=== PATIENT | female | born 1985 | race Caucasian/White ===

== ENCOUNTER 2018-10-04 08:29 | Emergency (ER) | payer SELFPAY ==
--- NOTE | 2018-10-04 09:28 | EDPHYS ---
Physician Documentation [facility] Name: Maine Bains Age: 33 yrs Sex: Female : 1985 Arrival Date: 10/04/2018 Time: 08:31 Bed 12 Private MD: None, None ED Physician Kodak Moran HPI: 10/04 09:19 This 33 yrs old Female presents to ER via Ambulatory with complaints of Ear cp Pain. 09:19 The patient presents with drainage, that is purulent, pain, that is acute, tenderness. cp The complaints affect the right ear. Onset: The symptoms/episode began/occurred 1 week(s) ago. Associated signs and symptoms: Pertinent negatives: cough, sinus trouble, sore throat. Severity of symptoms: in the emergency department the symptoms are unchanged. The patient has been recently seen by a physician: in [facility] clinic, yesterday, with similar presenting complaints, given RX for antibiotic ear drops and IM shot of toradol. 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 - Social history:: Smoking status: Patient uses tobacco products, smokes one-half pack cigarettes per day. - Ebola Screening: : No symptoms or risks identified at this time. ROS: 09:22 Eyes: Negative for injury, pain, redness, and discharge. cp 09:22 Constitutional: Negative for body aches, chills, fever, poor PO intake. 09:22 ENT: Positive for drainage from ear(s), ear pain, Negative for sore throat, difficulty swallowing, difficulty handling secretions. 09:22 Neck: Negative for pain with movement, pain at rest, stiffness. 09:22 Respiratory: Negative for cough. 09:22 All other systems are negative. Exam: 09:23 Head/Face: Normocephalic, atraumatic. cp 09:23 Constitutional: The patient appears alert, awake, non-toxic, well developed, well nourished, uncomfortable. 09:23 Eyes: Periorbital structures: appear normal, Conjunctiva: normal, no exudate, no injection, Lids and lashes: appear normal, bilaterally. 09:23 ENT: External ear(s): pain with movement, that is severe, of the right ear canal, swelling, that is moderate, of the right ear canal, Ear canal(s): purulent discharge, that is moderate, in the right canal, swelling, that is moderate, of the right canal, TM's: not visable, because of discharge, Examination of the other ear shows no obvious abnormality, Nose: is normal, Mouth: is normal, Posterior pharynx: Airway: no evidence of obstruction, patent. 09:23 Neck: ROM/movement: is normal, is supple, without pain, no range of motions limitations, no nuchal rigidity. 09:23 Chest/axilla: Inspection: normal. 09:23 Cardiovascular: Rate: normal. 09:23 Respiratory: the patient does not display signs of respiratory distress, Respirations: normal. Vital Signs: 09:02 BP 132 / 93; Pulse 83; Resp 16 S; Temp 98.0(O); Pulse Ox 99% on R/A; Weight 80.29 kg aa5 (R); Height 5 ft. 7 in. (170.18 cm) (R); Pain 10/10; 09:02 Body Mass Index 27.72 (80.29 kg, 170.18 cm) aa5 MDM: 09:01 Patient medically screened. cp 09:26 Data reviewed: vital signs, nurses notes, and as a result, I will discharge patient. cp Administered Medications: 09:45 Drug: TORadol 60 mg Route: IM; Site: right gluteus; aa5 10:00 Follow up: Response: No adverse reaction aa5 Disposition: 10:31 Co-signature as Attending Physician, Kodak Moran MD I agree with the assessment and ricardo plan of care. Disposition: 10/04/18 09:27 Discharged to Home. Impression: Acute suppurative otitis media with spontaneous rupture of ear drum, right ear. - Condition is Stable. - Discharge Instructions: Ear Drops, Adult, Otitis Media, Adult. - Prescriptions for Augmentin 875- 125 mg Oral Tablet - take 1 tablet by ORAL route every 12 hours for 10 days; 20 tablet. Ibuprofen 800 mg Oral Tablet - take 1 tablet by ORAL route every 8 hours As needed take with food; 30 tablet. Tylenol- Codeine #3 300-30 mg Oral Tablet - take 2 tablets by ORAL route every 8 hours As needed no driving while taking medication; 12 tablet. - Medication Reconciliation Form, Thank You Letter, Antibiotic Education, Prescription Opioid Use form. - Follow up: Private Physician; When: 2 - 3 days; Reason: Recheck today's complaints. - Problem is new. - Symptoms have improved. Signatures: Kodak Moran MD MD cha Calderon, Audri RN RN aa5 Kodak Levin PA PA cp Corrections: (The following items were deleted from the chart) 10:10 09:27 10/04/2018 09:27 Discharged to Home. Impression: Acute suppurative otitis media aa5 with spontaneous rupture of ear drum, right ear. Condition is Stable. Forms are Medication Reconciliation Form, Thank You Letter, Antibiotic Education, Prescription Opioid Use. Follow up: Private Physician; When: 2 - 3 days; Reason: Recheck today's complaints. Problem is new. Symptoms have improved. cp
--- NOTE | 2018-10-04 09:28 | ER ---
Nurse's Notes [facility] Name: Maine Bains Age: 33 yrs Sex: Female : 1985 Arrival Date: 10/04/2018 Time: 08:31 Bed 12 Private MD: None, None Diagnosis: Acute suppurative otitis media with spontaneous rupture of ear drum, right ear Presentation: 10/04 09:00 Presenting complaint: Patient states: right ear pain x 1 week ago. Pt reports [facility] aa5 [facility] and prescribed Ofloxacin, pt also reports receiving Toradol yesterday and helped with the pain but the pain got worse this morning. Pt states "the pain is so bad today". Transition of care: patient was not received from another setting of care. Onset of symptoms was September 2018. Risk Assessment: Do you want to hurt yourself or someone else? Patient reports no desire to harm self or others. Initial Sepsis Screen: Does the patient meet any 2 criteria? No. Patient's initial sepsis screen is negative. Does the patient have a suspected source of infection? No. Patient's initial sepsis screen is negative. Care prior to arrival: None. 09:00 Method Of Arrival: Ambulatory aa5 09:00 Acuity: DEANNE 4 aa5 Triage Assessment: 09:00 General: Appears uncomfortable, Behavior is calm, cooperative. 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 - Social history:: Smoking status: Patient uses tobacco products, smokes one-half pack cigarettes per day. - Ebola Screening: : No symptoms or risks identified at this time. Screenin:02 Abuse screen: Denies threats or abuse. Nutritional screening: No deficits noted. aa5 Tuberculosis screening: No symptoms or risk factors identified. Fall Risk None identified. Assessment: 09:00 General: Appears uncomfortable, Behavior is calm, cooperative. Pain: Complains of pain aa5 in right ear Pain currently is 10 out of 10 on a pain scale. Quality of pain is described as sharp, tender, throbbing, Pain began 1 week ago Is continuous. Neuro: Level of Consciousness is awake, alert, obeys commands, Oriented to person, place, time, situation. Cardiovascular: No deficits noted. Respiratory: Airway is patent Respiratory effort is even, unlabored, Respiratory pattern is regular, symmetrical. GI: No signs and/or symptoms were reported involving the gastrointestinal system. : No signs and/or symptoms were reported regarding the genitourinary system. EENT: Swelling noted to right ear . Reports pain in right ear. Derm: Skin is pink, warm \\T\\ dry. Musculoskeletal: Range of motion: intact in all extremities. 09:40 Reassessment: To bedside to d/c pt, pt requesting pain medication, PA notified. Ear aa5 wick applied to right ear by PA. . 10:00 Reassessment: Patient is alert, oriented x 3, equal unlabored respirations, skin aa5 warm/dry/pink. Patient states feeling better. Pain: Pain currently is 8 out of 10 on a pain scale. Vital Signs: 09:02 BP 132 / 93; Pulse 83; Resp 16 S; Temp 98.0(O); Pulse Ox 99% on R/A; Weight 80.29 kg aa5 (R); Height 5 ft. 7 in. (170.18 cm) (R); Pain 10/10; 09:02 Body Mass Index 27.72 (80.29 kg, 170.18 cm) aa5 ED Course: 08:31 Patient arrived in ED. mr 08:32 None, None is Private Physician. mr 09:00 Diana Starr, RN is Primary Nurse. aa5 09:00 Arm band placed on Patient placed in an exam room. aa5 09:00 Patient has correct armband on for positive identification. Call light in reach. aa5 09:01 Kodak Levin PA is PHCP. cp 09:01 Kodak Moran MD is Attending Physician. cp 09:01 Triage completed. aa5 10:00 No provider procedures requiring assistance completed. Patient did not have IV access aa5 during this emergency room visit. Administered Medications: 09:45 Drug: TORadol 60 mg Route: IM; Site: right gluteus; aa5 10:00 Follow up: Response: No adverse reaction aa5 Outcome: : Discharge ordered by . cp 10:00 Discharged to home ambulatory. aa5 10:00 Condition: stable 10:00 Discharge instructions given to patient, Instructed on discharge instructions, follow up and referral plans. medication usage, Demonstrated understanding of instructions, follow-up care, medications, Prescriptions given X 3. 10:02 Patient left the ED. aa5 Signatures: Terseita Mullen mr StarrDiana, RN RN aa5 Kodak Levin PA PA cp Corrections: (The following items were deleted from the chart) 10:11 10:10 Patient left the ED. aa5 aa5
[2018-10-04] MEDS ORDERED: KETOROLAC 30 MG/ML INJ ONE (09:53)
== END 2018-10-04 10:10 | disposition home or self-care (01) ==
LOC: ER 08:29
DX: H66.001 Acute suppurative otitis media without spontaneous rupture of ear drum, right ear (principal); F17.210 Nicotine dependence, cigarettes, uncomplicated
CPT/HCPCS: 96372; 99283

== ENCOUNTER 2022-05-04 18:25 | Emergency (ER) | payer SELFPAY ==
--- OUTSIDE RECORDS SUMMARY | 2022-05-04 18:29 | XMS REPORT | Continuity of Care Document ---
:[address] [facility] t Address [address] [place] [address] Care Team Providers Name Role Phone Vangie Blanco Primary Care Physician [phone] Problems This patient has no known problems. Allergies, Adverse Reactions, Alerts This patient has no known allergies or adverse reactions. Medications Ordered Filled Start Stop Current Ordering Indication Dosage Frequency Signature Comments Components Source Medication Medication Date Date Medication? Clinician (SIG) Name Name Dose 2021-0 No Unknown 4-01 00:00: 00 Dose 2022-0 No Unknown 4-01 00:00: 00 Dose 2022-0 No Unknown 4-01 00:00: 00 Dose 2022-0 No Unknown 4-01 00:00: 00 Dose 2022-0 No Unknown 4-01 00:00: 00 Dose 2022-0 No Unknown 4-01 00:00: 00 Dose 2022-0 No Unknown 4-01 00:00: 00 Dose 2022-0 No Unknown 4-01 00:00: 00 Dose 2022-0 No Unknown 4-01 00:00: 00 Dose 2022-0 No Unknown 4-01 00:00: 00 Dose 2022-0 No Unknown 4-01 00:00: 00 Dose 2022-0 No Unknown 4-01 00:00: 00 Dose 2022-0 No Unknown 4-01 00:00: 00 Dose 2022-0 No Unknown 4-01 00:00: 00 Dose 2022-0 No Unknown 4-01 00:00: 00 Dose 2022-0 No Unknown 4-01 00:00: 00 Dose 2022-0 No Unknown 4-01 00:00: 00 Dose 2022-0 No Unknown 4-01 00:00: 00 Dose 2022-0 No Unknown 4-01 00:00: 00 Dose 2022-0 No Unknown 4-01 00:00: 00 Dose 2022-0 No Unknown 4-01 00:00: 00 Dose 2022-0 No Unknown 4-01 00:00: 00 Dose 2022-0 No Unknown 4-01 00:00: 00 Dose 2022-0 No Unknown 4-01 00:00: 00 Dose 2022-0 No Unknown 4-01 00:00: 00 Dose 2022-0 No Unknown 4-01 00:00: 00 Dose 2022-0 No Unknown 4-01 00:00: 00 Dose 2022-0 No Unknown 4-01 00:00: 00 Dose 2022-0 No Unknown 4-01 00:00: 00 Dose 2022-0 No Unknown 4-01 00:00: 00 Dose 2022-0 No Unknown 4-01 00:00: 00 Dose 2022-0 No Unknown 4-01 00:00: 00 Dose 2022-0 No Unknown 4-01 00:00: 00 Dose 2022-0 No Unknown 4-01 00:00: 00 Dose 2022-0 No Unknown 4-01 00:00: 00 Dose 2022-0 No Unknown 4-01 00:00: 00 Dose 2022-0 No Unknown 4-01 00:00: 00 Dose 2022-0 No Unknown 4-01 00:00: 00 Dose 2022-0 No Unknown 4-01 00:00: 00 Dose 2022-0 No Unknown 4-01 00:00: 00 Dose 2022-0 No Unknown 4-01 00:00: 00 Dose 2022-0 No Unknown 4-01 00:00: 00 Dose 2022-0 No Unknown 4-01 00:00: 00 Dose 2022-0 No Unknown 4-01 00:00: 00 Dose 2022-0 No Unknown 4-01 00:00: 00 Dose 2022-0 No Unknown 4-01 00:00: 00 Dose 2022-0 No Unknown 4-01 00:00: 00 Dose 2022-0 No Unknown 4-01 00:00: 00 Dose 2022-0 No Unknown 4- 00:00: 00 Dose 2022-0 No Unknown 4- 00:00: 00 Dose 2022-0 No Unknown 4-01 00:00: 00 Dose 2022-0 No Unknown 4-01 00:00: 00 Dose 2022-0 No Unknown 4-01 00:00: 00 Dose 2-0 No Unknown 4-01 00:00: 00 Dose 2-0 No Unknown 3-16 00:00: 00 Dose 2022-0 No Unknown 3-16 00:00: 00 Dose 2022-0 No Unknown 3-16 00:00: 00 Dose 2022-0 No Unknown 3-16 00:00: 00 Dose 2-0 No Unknown 3-16 00:00: 00 Dose 2022-0 No Unknown 3-16 00:00: 00 Dose 2022-0 No Unknown 3-16 00:00: 00 Dose 2-0 No Unknown 3-16 00:00: 00 Dose 2-0 No Unknown 3-16 00:00: 00 Depo-M[address] Supervisor 2021-0 No 1mg/mL a 150 mg/mL 4-16 intramuscul 00:00: ar 00 suspension mupirocin 2 2020-0 No 1% % topical 5-15 ointment 00:00: 00 mupirocin 2 2020-0 No 1% % topical 5-15 ointment 00:00: 00 mupirocin 2 2020-0 No 1% % topical 5-15 ointment 00:00: 00 ibuprofen 2019-0 No 1mg 800 mg 3-15 tablet 00:00: 00 ibuprofen 2019-0 No 1mg 800 mg 3-15 tablet 00:00: 00 ibuprofen 2019-0 No 1mg 800 mg 3-15 tablet 00:00: 00 Dose 2019-0 No Unknown 3-14 00:00: 00 Dose 2019-0 No Unknown 3-14 00:00: 00 ofloxacin 2019-0 No 10% 0.3 % ear 3-14 drops 00:00: 00 amoxicillin 2018-0 No 1mg 875 mg 4-30 tablet 00:00: 00 amoxicillin 2018-0 No 1mg 875 mg 4-30 tablet 00:00: 00 amoxicillin 2018-0 No 1mg 875 mg 4-30 tablet 00:00: 00 Vital Signs Vital Name Observation Time Observation Value Comments Source BP Systolic 2022-02-02 17:16:00 124 mm[Hg] BP Diastolic 2022-02-02 17:16:00 87 mm[Hg] Weight Measured 2022-02-02 17:16:00 193.80 pounds Height Measured 2022-02-02 17:16:00 67.00 inches Body Temperature 2022-02-02 17:16:00 98.10 degrees Heart Rate 2022-02-02 17:16:00 86.00 /min Respiratory Rate 2022-02-02 17:16:00 18.00 /min BP Systolic 2021-07-22 08:49:00 120 mm[Hg] BP Diastolic 2021-07-22 08:49:00 76 mm[Hg] Weight Measured 2021-07-22 08:49:00 192.20 pounds Height Measured 2021-07-22 08:49:00 67.00 inches Body Temperature 2021-07-22 08:49:00 98.40 degrees Heart Rate 2021-07-22 08:49:00 88.00 /min Respiratory Rate 2021-07-22 08:49:00 18.00 /min BP Systolic 2021-04-22 09:02:00 117 mm[Hg] BP Diastolic 2021-04-22 09:02:00 72 mm[Hg] Weight Measured 2021-04-22 09:02:00 186.20 pounds Height Measured 2021-04-22 09:02:00 67.00 inches Body Temperature 2021-04-22 09:02:00 98.20 degrees Heart Rate 2021-04-22 09:02:00 82.00 /min Respiratory Rate 2021-04-22 09:02:00 21.00 /min BP Systolic 2020-08-12 13:39:00 120 mm[Hg] BP Diastolic 2020-08-12 13:39:00 76 mm[Hg] Weight Measured 2020-08-12 13:39:00 191.80 pounds Height Measured 2020-08-12 13:39:00 67.00 inches Body Temperature 2020-08-12 13:39:00 98.20 degrees Heart Rate 2020-08-12 13:39:00 72.00 /min Respiratory Rate 2020-08-12 13:39:00 18.00 /min BP Systolic 2019-12-05 09:54:00 124 mm[Hg] BP Diastolic 2019-12-05 09:54:00 76 mm[Hg] Weight Measured 2019-12-05 09:54:00 186.80 pounds Height Measured 2019-12-05 09:54:00 67.00 inches Body Temperature 2019-12-05 09:54:00 98.70 degrees Heart Rate 2019-12-05 09:54:00 69.00 /min Respiratory Rate 2019-12-05 09:54:00 16.00 /min BP Systolic 2018-10-03 10:55:00 121 mm[Hg] BP Diastolic 2018-10-03 10:55:00 79 mm[Hg] Weight Measured 2018-10-03 10:55:00 177.20 pounds Height Measured 2018-10-03 10:55:00 67.00 inches Body Temperature 2018-10-03 10:55:00 98.50 degrees Heart Rate 2018-10-03 10:55:00 90.00 /min Respiratory Rate 2018-10-03 10:55:00 16.00 /min BP Systolic 2017-11-19 08:50:00 119 mm[Hg] BP Diastolic 2017-11-19 08:50:00 87 mm[Hg] Weight Measured 2017-11-19 08:50:00 159.00 pounds Height Measured 2017-11-19 08:50:00 67.00 inches Body Temperature 2017-11-19 08:50:00 97.30 degrees Heart Rate 2017-11-19 08:50:00 73.00 /min Respiratory Rate 2017-11-19 08:50:00 18.00 /min BP Systolic 2017-07-27 11:46:00 129 mm[Hg] BP Diastolic 2017-07-27 11:46:00 86 mm[Hg] Weight Measured 2017-07-27 11:46:00 154.20 pounds Height Measured 2017-07-27 11:46:00 67.00 inches Body Temperature 2017-07-27 11:46:00 98.00 degrees Heart Rate 2017-07-27 11:46:00 68.00 /min Respiratory Rate 2017-07-27 11:46:00 18.00 /min BP Systolic 2017-05-10 11:11:00 129 mm[Hg] BP Diastolic 2017-05-10 11:11:00 86 mm[Hg] Weight Measured 2017-05-10 11:11:00 156.60 pounds Height Measured 2017-05-10 11:11:00 67.00 inches Body Temperature 2017-05-10 11:11:00 98.50 degrees Heart Rate 2017-05-10 11:11:00 71.00 /min Respiratory Rate 2017-05-10 11:11:00 BP Systolic 2017-02-20 08:45:00 120 mm[Hg] BP Diastolic 2017-02-20 08:45:00 82 mm[Hg] Weight Measured 2017-02-20 08:45:00 156.40 pounds Height Measured 2017-02-20 08:45:00 67.00 inches Body Temperature 2017-02-20 08:45:00 97.90 degrees Heart Rate 2017-02-20 08:45:00 79.00 /min Respiratory Rate 2017-02-20 08:45:00 Procedures This patient has no known procedures. Plan of Care Planned Activity Planned Date Details Comments Source Goal Plan of Care Note [code = 59835-8] Goal Plan of Care Note [code = 05748-6] Goal Plan of Care Note [code = 77169-2] Goal Plan of Care Note [code = 32563-1] Goal Plan of Care Note [code = 42577-9] Goal Plan of Care Note [code = 79229-8] Goal Plan of Care Note [code = 13608-5] Goal Plan of Care Note [code = 58662-5] Goal Plan of Care Note [code = 20409-5] Goal Plan of Care Note [code = 70540-7] Goal Plan of Care Note [code = 30970-4] Goal Plan of Care Note [code = 53302-6] Goal Plan of Care Note [code = 89126-3] Goal Plan of Care Note [code = 04588-8] Goal Plan of Care Note [code = 44173-9] Goal Plan of Care Note [code = 42188-0] Goal Plan of Care Note [code = 41717-4] Goal Plan of Care Note [code = 85607-1] Goal Plan of Care Note [code = 43105-5] Goal Plan of Care Note [code = 97960-6] Goal Plan of Care Note [code = 63469-4] Goal Plan of Care Note [code = 43958-5] Goal Plan of Care Note [code = 08905-9] Goal Plan of Care Note [code = 02242-0] Goal Plan of Care Note [code = 49267-5] Goal Plan of Care Note [code = 51581-5] Goal Plan of Care Note [code = 36904-2] Goal Plan of Care Note [code = 46529-5] Goal Plan of Care Note [code = 36222-6] Goal Plan of Care Note [code = 30519-9] Encounters Start End Encounter Admission Attending Care Care Encounter Source Date/Time Date/Time Type Type Clinicians Facility Department ID 2022-05-02 2022-05-02 Outpatient [id number] 00:00:00 00:00:00 Visit [id number] 2022-04-28 2022-04-28 Outpatient SFA SFA [id number] Norm 10:23:54 10:23:54 007 F Bassam 2022-04-19 2022-04-19 Outpatient [id number] 00:00:00 00:00:00 Visit [id number] 2022-02-02 2022-02-02 Outpatient [id number] 00:00:00 00:00:00 Visit [id number] Results This patient has no known results.
[2022-05-04] MEDS ORDERED: ONDANSETRON 4 MG/2 ML VIAL ONE (19:33)
[2022-05-04] MEDS ORDERED: MORPHINE 4 MG/ML SYR ONE (19:33)
[2022-05-04 20:11] LABS: Absolute Lymphocytes (CBC) 2.7 K/uL (0.7-4.9); Hematocrit 37.3 % (36.0-45.0); Lymphocytes % 35.7 % (15.3-44.8); MCV 92.1 fL (80-100); RBC Red Blood Cell Count 4.05 M/uL (3.86-4.86)
[2022-05-04 20:28] LABS: Albumin 3.5 g/dL (3.4-5.0); Bilirubin Total 0.2 mg/dL (0.2-1.0); Potassium 3.8 mmol/L (3.5-5.1); Protein, Total 6.9 g/dL (6.4-8.2)
[2022-05-04] MEDS ORDERED: BUPIVACAINE 0.5% PF 10 ML VIAL ONE (20:59)
[2022-05-04] MEDS ORDERED: LIDOCAINE 1% MPF 5 ML VIAL ONE (20:59)
[2022-05-04] MEDS ORDERED: CLINDAMYCIN 900MG/D5W 900 MG/50 ML IVPB IV ONE (21:00)
--- NOTE | 2022-05-04 21:12 | RAD REPORT ---
EXAM DESCRIPTION: RAD - Foot Right 3 View - 05/04/2022 9:04 pm CLINICAL HISTORY: toe pain Pain and swelling COMPARISON: No comparisons FINDINGS: Moderate soft tissue swelling is seen affecting the great toe. No soft tissue gas or forei gn body. No radiographic finding seen to indicate osteomyelitis. No fracture.
--- NOTE | 2022-05-04 21:55 | ER ---
Nurse's Notes [facility] Name: Maine Bains Age: 37 yrs Sex: Female : 1985 Arrival Date: 05/04/2022 Time: 18:27 Bed 5 Private MD: Diagnosis: Cellulitis of right lower limb-right great toe;Ingrowing nail-right great toe Presentation: 05/04 18:53 Chief complaint: Patient states: right great toe red, swollen, infected ; soaking in jh5 epsom salt and doing Neosporin andd getting worse. Coronavirus screen: Vaccine status: Patient reports receiving the 2nd dose of the covid vaccine. Client denies travel out of the [place] in the last 14 days. Ebola Screen: Patient negative for fever greater than or equal to 101.5 degrees Fahrenheit, and additional compatible Ebola Virus Disease symptoms Patient denies exposure to infectious person. Patient denies travel to an Ebola-affected area in the 21 days before illness onset. Initial Sepsis Screen: Does the patient meet any 2 criteria? HR > 90 bpm. Yes Does the patient have a suspected source of infection? Yes: Other: right great toe. Risk Assessment: Do you want to hurt yourself or someone else? Patient reports no desire to harm self or others. Onset of symptoms was March 2022. 18:53 Method Of Arrival: Ambulatory [facility] 18:53 Acuity: DEANNE 3 5 Triage Assessment: 18:59 General: Appears uncomfortable, Behavior is calm, cooperative, appropriate for age, [facility] anxious, crying. Pain: Complains of pain in right foot. 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 - Social history:: Smoking status: Patient denies any tobacco usage or history of. Screenin:20 Abuse screen: Denies threats or abuse. Denies injuries from another. Nutritional lg3 screening: No deficits noted. Tuberculosis screening: No symptoms or risk factors identified. Fall Risk None identified. Assessment: 19:20 General: Appears in no apparent distress. comfortable, Behavior is calm, cooperative. lg3 Pain: Complains of pain in right great toe Pain currently is 6 out of 10 on a pain scale. Neuro: No deficits noted. Level of Consciousness is awake, alert, obeys commands, Oriented to person, place, time, situation. Cardiovascular: No deficits noted. Denies chest pain, shortness of breath, Capillary refill < 3 seconds Clubbing of nail beds is absent JVD is absent Patient's skin is warm and dry. Respiratory: No deficits noted. Airway is patent Trachea midline Respiratory effort is even, unlabored, Respiratory pattern is regular, symmetrical, Breath sounds are clear bilaterally. GI: No deficits noted. No signs and/or symptoms were reported involving the gastrointestinal system. Abdomen is flat, non-distended, Abd is soft and non tender X 4 quads. : No deficits noted. No signs and/or symptoms were reported regarding the genitourinary system. EENT: No deficits noted. No signs and/or symptoms were reported regarding the EENT system. Derm: Skin is intact, is healthy with good turgor, Skin is dry, Skin is normal, Skin temperature is warm Wound noted right great toe Reports pain. Musculoskeletal: Circulation, motion, and sensation intact. Range of motion: intact in all extremities, Swelling present in right great toe. 21:17 Reassessment: Patient appears in no apparent distress at this time. No changes from lg3 previously documented assessment. Patient and/or family updated on plan of care and expected duration. Pain level reassessed. Patient is alert, oriented x 3, equal unlabored respirations, skin warm/dry/pink. 22:17 Reassessment: Patient appears in no apparent distress at this time. No changes from lg3 previously documented assessment. Patient and/or family updated on plan of care and expected duration. Pain level reassessed. Patient is alert, oriented x 3, equal unlabored respirations, skin warm/dry/pink. Pain: Complains of pain in right great toe Pain currently is 4 out of 10 on a pain scale. Vital Signs: 18:53 BP 155 / 95; Pulse 90; Resp 16; Temp 98.8; Pulse Ox 100% ; Weight 86.18 kg; Height 5 jh5 ft. 7 in. (170.18 cm); Pain 10/10; 21:18 BP 135 / 78; Pulse 84; Resp 17 S; Pulse Ox 100% on R/A; lg3 18:53 Body Mass Index 29.76 (86.18 kg, 170.18 cm) [facility] ED Course: 18:27 Patient arrived in ED. rg4 18:31 [facility] cp 18:31 Kodak Moran MD is Attending Physician. cp 18:59 Triage completed. [facility] 18:59 Arm band placed on. [facility] 19:02 Patient placed in an exam room, on a stretcher. ll1 19:13 Destiney Leavitt, RN is Primary Nurse. lg3 19:20 Patient has correct armband on for positive identification. Placed in gown. Bed in low lg3 position. Call light in reach. Side rails up X 1. Client placed on continuous cardiac and pulse oximetry monitoring. NIBP monitoring applied. Door closed. Noise minimized. Warm blanket given. Family accompanied patient. 21:00 Inserted saline lock: 20 gauge in right antecubital area, using aseptic technique. lg3 Blood collected. 21:54 Miguel Coulter DPM is Referral Physician. cp 22:18 No provider procedures requiring assistance completed. IV discontinued, intact, lg3 bleeding controlled, No redness/swelling at site. Pressure dressing applied. Administered Medications: 21:04 Drug: morphine 4 mg Route: IVP; Infused Over: 4 mins; Site: right antecubital; as6 21:13 Follow up: Response: No adverse reaction; No change in condition lg3 21:04 Drug: Zofran (Ondansetron) 4 mg Route: IVP; Site: right antecubital; as6 21:13 Follow up: Response: No adverse reaction lg3 21:04 Drug: Clindamycin 900 mg Route: IVPB; Infused Over: 30 mins; Site: right antecubital; as6 21:17 Follow up: Response: No adverse reaction; IV Status: Completed infusion; IV Intake: [id number] 21:16 Drug: Bupivacaine (0.5 %) 10 ml Volume: 10 ml; Route: Infiltration; lg3 21:16 Drug: Lidocaine (1 %) 10 ml Volume: 20 ml; Route: Infiltration; lg3 22:15 Drug: Hydrocodone-Acetaminophen (7.5 mg-325 mg) 1 tabs Route: PO; lg3 22:15 Follow up: Response: No adverse reaction lg3 22:15 Drug: Bactrim (trimethoprim-sulfamethoxazole) (160 mg-800 mg (DS) 2 tablet Route: PO; lg3 22:15 Follow up: Response: No adverse reaction lg3 Medication: 22:19 VIS not applicable for this client. lg3 Intake: 21:17 IV: 50ml; Total: 50ml. lg3 Outcome: 21:54 Discharge ordered by . cp 22:19 Discharged to home ambulatory. lg3 22:19 Condition: stable 22:19 Discharge instructions given to patient, Instructed on discharge instructions, follow up and referral plans. medication usage, wound care, Demonstrated understanding of instructions, follow-up care, medications, wound care, Prescriptions given X 3. 22:24 Patient left the ED. kd3 Signatures: Kodak Levin PA PA cp Garcia, Rubi rg4 Destiney Leavitt, RN RN lg3 Arian Lee, RN RN ll1 Parisa Perez, RN RN jh5 Nicholas Goodman, RN RN as6 Patricia Coleman RN RN kd3
--- NOTE | 2022-05-04 21:55 | EDPHYS ---
Physician Documentation [facility] Name: Maine Bains Age: 37 yrs Sex: Female : 1985 Arrival Date: 05/04/2022 Time: 18:27 Bed 5 Private MD: ED Physician Kodak Moran HPI: 05/04 19:33 This 37 yrs old Female presents to ER via Ambulatory with complaints of Toe Infection. cp 19:33 The patient presents with pain, swelling, tenderness. The complaints affect the right cp great toe. 19:33 Context: concern for ingrown toenail. Onset: The symptoms/episode began/occurred 1 cp month(s) ago. Associated signs and symptoms: Pertinent positives: swelling, warmth, drainage, Pertinent negatives fever. Severity of symptoms: in the emergency department the symptoms are unchanged, despite home interventions. Patient reports attempted to remove ingrown nail right big toe. 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 - Social history:: Smoking status: Patient denies any tobacco usage or history of. ROS: 19:40 Constitutional: Negative for body aches, chills, fever, poor PO intake. cp 19:40 Eyes: Negative for injury, pain, redness, and discharge. cp 19:40 ENT: Negative for drainage from ear(s), ear pain, sore throat, difficulty swallowing, difficulty handling secretions. 19:40 Cardiovascular: Negative for chest pain. 19:40 Respiratory: Negative for cough, shortness of breath, wheezing. 19:40 Abdomen/GI: Negative for abdominal pain, nausea, vomiting, and diarrhea. 19:40 MS/extremity: Positive for erythema, pain, swelling, tenderness, of the right great toe, Negative for injury or acute deformity. 19:40 All other systems are negative. Exam: 19:45 Constitutional: The patient appears in no acute distress, alert, awake, non-toxic, well cp developed, well nourished, anxious, uncomfortable. 19:45 Head/Face: Normocephalic, atraumatic. cp 19:45 Chest/axilla: Inspection: normal. 19:45 Cardiovascular: Rate: normal, Rhythm: regular, Pulses: Pulses are 2+ in right dorsalis pedis artery. 19:45 Respiratory: the patient does not display signs of respiratory distress, Respirations: normal, no use of accessory muscles, no retractions, labored breathing, is not present, Breath sounds: are clear throughout. 19:45 Abdomen/GI: Exam negative for discomfort, distension, guarding, Inspection: abdomen appears normal. 19:45 Musculoskeletal/extremity: Extremities: grossly normal except: noted in the right great toe: marked erythema with marked swelling along medial side of nail, marked tenderness to palpation and small amount bloody drainage expressed, erythema and swelling extends proximally to base of proximal phalanx. Vital Signs: 18:53 BP 155 / 95; Pulse 90; Resp 16; Temp 98.8; Pulse Ox 100% ; Weight 86.18 kg; Height 5 jh5 ft. 7 in. (170.18 cm); Pain 10/10; 21:18 BP 135 / 78; Pulse 84; Resp 17 S; Pulse Ox 100% on R/A; lg3 18:53 Body Mass Index 29.76 (86.18 kg, 170.18 cm) jh5 MDM: 19:10 Patient medically screened. cp 21:54 Data reviewed: vital signs, nurses notes, lab test result(s), radiologic studies, plain cp films. 21:54 Differential diagnosis: abscess, cellulitis, fracture, osteomyelitis. Test cp interpretation: by ED physician or midlevel provider: plain radiologic studies. 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 ED course: Patient unable to tolerate removal of medial side ingrown nail after unsuccessful digital block using 8 ccs of mixture 1% lidocaine with 0.5% Marcaine attempted. Will discharge with oral antibiotics and recommend podiatry f/u. 05/04 19:26 Order name: CBC with Diff; Complete Time: 20:34 cp 05/04 19:26 Order name: CMP; Complete Time: 20:34 cp 05/04 19:26 Order name: XRAY Foot RIGHT 3 View cp 05/04 19:26 Order name: Lactate; Complete Time: 20:34 cp 05/04 19:26 Order name: Wound Culture cp 05/04 19:26 Order name: Procalcitonin; Complete Time: 20:34 cp 05/04 21:12 Order name: RAD; Complete Time: 21:52 EDMS 05/04 19:26 Order name: IV Saline Lock; Complete Time: 21:04 cp 05/04 19:26 Order name: Labs collected and sent; Complete Time: 21:04 cp 05/04 19:53 Order name: Dressing - Wound; Complete Time: 21:16 cp 05/04 19:53 Order name: Gloves, Sterile; Complete Time: 21:16 cp 05/04 19:53 Order name: Setup Suture Tray; Complete Time: 21:16 cp 05/04 21:53 Order name: Wound dressing; Complete Time: 22:15 cp Administered Medications: 21:04 Drug: morphine 4 mg Route: IVP; Infused Over: 4 mins; Site: right antecubital; as6 21:13 Follow up: Response: No adverse reaction; No change in condition lg3 21:04 Drug: Zofran (Ondansetron) 4 mg Route: IVP; Site: right antecubital; as6 21:13 Follow up: Response: No adverse reaction lg3 21:04 Drug: Clindamycin 900 mg Route: IVPB; Infused Over: 30 mins; Site: right antecubital; as6 21:17 Follow up: Response: No adverse reaction; IV Status: Completed infusion; IV Intake: [id number] 21:16 Drug: Bupivacaine (0.5 %) 10 ml Volume: 10 ml; Route: Infiltration; lg3 21:16 Drug: Lidocaine (1 %) 10 ml Volume: 20 ml; Route: Infiltration; lg3 22:15 Drug: Hydrocodone-Acetaminophen (7.5 mg-325 mg) 1 tabs Route: PO; lg3 22:15 Follow up: Response: No adverse reaction lg3 22:15 Drug: Bactrim (trimethoprim-sulfamethoxazole) (160 mg-800 mg (DS) 2 tablet Route: PO; lg3 22:15 Follow up: Response: No adverse reaction lg3 Disposition Summary: 05/04/22 21:54 Discharge Ordered Location: Home cp Problem: new cp Symptoms: have improved cp Condition: Stable cp Diagnosis - Cellulitis of right lower limb - right great toe cp - Ingrowing nail - right great toe cp Followup: cp - With: Miguel Coulter DPM - When: 2 - 3 days - Reason: Recheck today's complaints Discharge Instructions: - Discharge Summary Sheet cp - Cellulitis, Adult cp - Ingrown Toenail cp Forms: - Medication Reconciliation Form cp - Thank You Letter cp - Antibiotic Education cp - Prescription Opioid Use cp Prescriptions: - Clindamycin HCl 300 mg Oral Capsule - take 1 capsule by ORAL route every 6 hours for 10 days; 40 capsule; Refills: 0, cp Product Selection Permitted - Diclofenac Sodium 75 mg Oral Tablet Sustained Release - take 1 tablet by ORAL route 2 times per day; 30 tablet; Refills: 0, Product cp Selection Permitted - Bactrim DS 800-160 mg Oral Tablet - take 1 tablet by ORAL route every 12 hours for 10 days; 20 tablet; Refills: 0, cp Product Selection Permitted Signatures: Dispatcher [employer] EDMS Kodak Levin PA PA cp Destiney Leavitt RN RN lg3 Parisa Perez RN RN jh5 Nicholas Goodman RN RN as6 Corrections: (The following items were deleted from the chart) 05/05 16:12 16:12 This 37 yrs old Female presents to ER via Ambulatory with complaints of Toe cp Infection. cp
[2022-05-04] MEDS ORDERED: SMZ./TMP. 800/160 MG TABLET ONE (22:11)
[2022-05-04] MEDS ORDERED: HYDROCODONE/APAP 7.5/325 MG TAB ONE (22:11)
[2022-05-04 23:53] VITALS: TEMP 98.8; O2SAT 100
[2022-05-04 23:54] VITALS: BP 135/78
== END 2022-05-04 22:24 | disposition home or self-care (01) ==
LOC: ER 18:25
DX: L03.031 Cellulitis of right toe (principal); L60.0 Ingrowing nail; J45.909 Unspecified asthma, uncomplicated; F41.9 Anxiety disorder, unspecified; F32.A Depression, unspecified
CPT/HCPCS: 36415; 80053; 83605; 84145; 85025; 87070; 87077; 87186; 87205; 96374; 96375; 99284; J2001; J2405

== ENCOUNTER 2023-11-09 08:17 | Emergency (ER) | payer SELFPAY ==
[2023-11-09] MEDS ORDERED: ONDANSETRON 4 MG/2 ML VIAL ONE ×2 (08:34→10:48)
[2023-11-09] MEDS ORDERED: FAMOTIDINE 20 MG/2 ML VIAL IV ONE (08:34)
[2023-11-09] MEDS ORDERED: MORPHINE 4 MG/ML SYR ONE (08:34)
[2023-11-09 09:11] LABS: Absolute Basophils 0.1 K/uL (0-0.5); Absolute Lymphocytes (CBC) 0.8 K/uL (0.7-4.9); Absolute Monocytes 0.4 K/uL (0.1-1.3); Basophils % 0.5 % (0-1.3); Eosinophils % 0.1 % (0-4.4); Hematocrit 40.6 % (36.0-45.0); Hemoglobin 13.8 g/dL (12.0-15.0); Lymphocytes % 7.5 % (15.3-44.8); MCH 31.1 pg (27.0-35.0); MCHC 34.1 g/dL (32.0-36.0); MCV 91.2 fL (80-100); MPV 7.3 fL (7.6-11.3); Monocytes % 3.2 % (3.3-12.3); Neutrophils % 88.7 % (41.7-73.7); Platelets 315 thou/uL (152-406); RBC Red Blood Cell Count 4.46 M/uL (3.86-4.86); Red Cell Distribution Width 12.9 % (12.1-15.2)
[2023-11-09 09:29] LABS: Albumin 3.8 g/dL (3.4-5.0); Bilirubin Total 0.5 mg/dL (0.2-1.0); Globulin 3.8 g/dL (2.3-3.5); Protein, Total 7.6 g/dL (6.4-8.2)
[2023-11-09 09:37] LABS: Blood Morphology Comment NOT SEEN (NOT SEEN); Platelet Estimate ADEQ; Toxic Granulation 1+; White Blood Cell Scan OK (OK)
--- NOTE | 2023-11-09 10:28 | RAD REPORT ---
EXAM DESCRIPTION: CT - Abdomen Pelvis Wo Contrast - 11/09/2023 10:11 am CLINICAL HISTORY: ABD PAIN COMPARISON: No comparisons TECHNIQUE: Thin cut axial CT imaging of the abdomen and pelvis was performed without IV contrast. Mu ltiplanar reformats were generated and reviewed. All CT scans are performed using dose optimization technique as appropriate and may include automated exposure control or mA/KV adjustment according to patient size. FINDINGS: No suspicious findings in the lung bases. The liver, spleen, adrenal glands, and pancreas show no suspicious findings. Gallbladder and biliary tree are also without suspicious finding apart from minimally hyperdense layering sludge within the g allbladder. Symmetric renal contour, without suspicious parenchymal findings within limits of noncontrast techniq ue. No evidence of hydroureteronephrosis. 2 mm left lower pole nonobstructing calculus. No dilated bowel loops or bowel wall thickening. Mild distal colonic diverticulosis without evidence of acute diverticulitis. Left retroperitoneal ovoid fluid density 2.9 x 2.2 cm lesion, may represent a small venous varix or inclusion cyst. No free air, free fluid or inflammatory stranding. No hernia, mass or bulky lymphadenopathy. The urinary bladder is without significant finding. No suspicious bony findings. IMPRESSION: Nonobstructing left lower renal pole 2 mm calculus. No other acute intra-abdominal process. Incidental findings as above.
--- NOTE | 2023-11-09 10:43 | EDPHYS ---
Physician Documentation [facility] Name: Maine Bains Age: 38 yrs Sex: Female : 1985 Arrival Date: 11/09/2023 Time: 08:17 Bed 15 Private MD: ED Physician Tigre Goldstein HPI: 11/08 08:31 This 38 yrs old Female presents to ER via EMS with complaints of abdominal pain, sp3 vomiting, diarrhea. 08:31 38-year-old female with a history of anxiety, asthma, depression who is on weight loss sp3 medication managed by local weight loss clinic now presents to the ED with abdominal cramping, vomiting and diarrhea for the last 24 hours. Patient states her medication was increased on Sunday. Patient cannot recall the name of her medication. She denies any fever, URI symptoms, neck pain, chest pain, shortness of breath, back pain, flank pain, symptoms, CONSUMER INSIGHTS INTERN symptoms, syncope, near syncope, bleeding, rash, or any other signs or symptoms on ROS at this time.. 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 - Infectious Disease History:: Denies. - Social history:: Smoking status: Patient denies any tobacco usage or history of. ROS: 08:32 Constitutional: Negative for fever, chills, and weight loss, Eyes: Negative for injury, sp3 pain, redness, and discharge, ENT: Negative for injury, pain, and discharge, Neck: Negative for injury, pain, and swelling, Cardiovascular: Negative for chest pain, palpitations, and edema, Respiratory: Negative for shortness of breath, cough, wheezing, and pleuritic chest pain, Back: Negative for injury and pain, MS/Extremity: Negative for injury and deformity, Skin: Negative for injury, rash, and discoloration, Neuro: Negative for headache, weakness, numbness, tingling, and seizure, Psych: Negative for depression, anxiety, suicide ideation, homicidal ideation, and hallucinations, Allergy/Immunology: Negative for hives, rash, and allergies, Endocrine: Negative for neck swelling, polydipsia, polyuria, polyphagia, and marked weight changes, 08:32 All other systems are negative, Exam: 08:32 Constitutional: This is a well developed, well nourished patient who is awake, alert, sp3 and in no acute distress. Head/Face: Normocephalic, atraumatic. Eyes: Pupils equal round and reactive to light, extra-ocular motions intact. Lids and lashes normal. Conjunctiva and sclera are non-icteric and not injected. Cornea within normal limits. Periorbital areas with no swelling, redness, or edema. ENT: Nares patent. No nasal discharge, no septal abnormalities noted. External auditory canals are clear. Oropharynx with no redness, swelling, or masses, exudates, or evidence of obstruction, uvula midline. Mucous membranes moist. Neck: Trachea midline, no thyromegaly or masses palpated, and no cervical lymphadenopathy. Supple, full range of motion without nuchal rigidity, or vertebral point tenderness. No Meningismus. Chest/axilla: Normal chest wall appearance and motion. Nontender with no deformity. No lesions are appreciated. Cardiovascular: Regular rate and rhythm with a normal S1 and S2. No gallops, murmurs, or rubs. Normal PMI, no JVD. No pulse deficits. Respiratory: Lungs have equal breath sounds bilaterally, clear to auscultation and percussion. No rales, rhonchi or wheezes noted. No increased work of breathing, no retractions or nasal flaring. Back: No spinal tenderness. No costovertebral tenderness. Full range of motion. Skin: Warm, dry with normal turgor. Normal color with no rashes, no lesions, and no evidence of cellulitis. MS/ Extremity: Pulses equal, no cyanosis. Neurovascular intact. Full, normal range of motion. Neuro: Awake and alert, GCS 15, oriented to person, place, time, and situation. Cranial nerves II-XII grossly intact. Motor strength 5/5 in all extremities. Sensory grossly intact. Cerebellar exam normal. Normal gait. Psych: Awake, alert, with orientation to person, place and time. Behavior, mood, and affect are within normal limits. 08:32 Abdomen/GI: Soft abdomen without peritoneal signs, rebound or guarding with tenderness in the lower quadrants., Vital Signs: 08:21 BP 137 / 92; Pulse 67; Resp 17; Temp 98; Pulse Ox 99% ; Weight 91.17 kg; Height 5 ft. 7 ll1 in. ; Pain 10/10; 10:33 BP 122 / 95; Pulse 70; Resp 18; Pulse Ox 100% on R/A; mb9 08:21 Body Mass Index 31.48 (91.17 kg, 170.18 cm) ll1 08:21 Pain Scale: Adult ll1 MDM: 08:30 Patient medically screened. sp3 08:34 Data reviewed: vital signs, nurses notes, EMS record, lab test result(s), radiologic sp3 studies. ED course: 38-year-old female with PMH above now with abdominal cramping. Differential diagnosis includes side effects of her weight loss medication (exact medication name is pending however I believe it is generic Ozempic or related drug), gastroenteritis viral or bacterial, foodborne illness, among others. I am not highly suspicious for or CONSUMER INSIGHTS INTERN or vascular pathology. Workup will include CT scan of the abdomen pelvis, laboratory values and general supportive care including IV fluids and pain and nausea control. If workup is negative and patient is improved, we will safely discharge her home with PCP follow-up.. 10:41 ED course: Workup is negative, we will safely discharge patient home on ODT Zofran. sp3 Follow back up with her PCP as needed on dosing of her medications.. 11/08 08:30 Order name: CBC with Diff; Complete Time: 10:40 sp3 11/08 08:30 Order name: CMP; Complete Time: 10:40 sp3 11/08 08:30 Order name: Lipase; Complete Time: 10:40 sp3 11/08 08:30 Order name: Urinalysis w/ reflexes; Complete Time: 10:56 sp3 11/08 08:38 Order name: Test, Serum; Complete Time: 10:40 eb 11/08 09:14 Order name: CBC Smear Scan; Complete Time: 10:40 EDMS 11/08 10:12 Order name: Abdomen ; Complete Time: 10:40 EDMS 11/08 08:30 Order name: IV Saline Lock; Complete Time: 08:32 sp3 11/08 08:30 Order name: Labs collected and sent; Complete Time: 08:32 sp3 Administered Medications: 08:32 Drug: NS 0.9% IV 1000 ml IV at 1 bolus Per protocol; 1000 mL bolus Route: IV; Rate: 1 ll1 bolus; Site: left antecubital; 08:49 Drug: Famotidine IVP 20 mg IVP once; dilute with 10 mL 0.9% NaCl; give over 2 minutes ll1 Route: IVP; Site: left antecubital; 10:51 Follow up: Response: No adverse reaction mb9 08:49 Drug: Ondansetron IVP 4 mg IVP once; over 2 minutes Route: IVP; Site: left antecubital; ll1 10:51 Follow up: Response: No adverse reaction mb9 08:49 Drug: morphine IVP or IV 4 mg IVP once over 4 mins Route: IVP; Infused Over: 4 mins; ll1 Site: left antecubital; 10:51 Follow up: Response: No adverse reaction mb9 10:51 Drug: Ondansetron IVP 4 mg IVP once; over 2 minutes Route: IVP; Site: left antecubital; mb9 Disposition Summary: 11/09/23 10:41 Discharge Ordered Notes: Location: Home sp3 Condition: Stable sp3 Diagnosis - Abdominal pain, vomiting sp3 Followup: sp3 - With: Private Physician - When: Upon discharge from the Emergency Department - Reason: Continuance of care Discharge Instructions: - Discharge Summary Sheet sp3 - Preventing Consequences of Unhealthy Weight Loss Behaviors, Adult sp3 Forms: - Medication Reconciliation Form sp3 - Thank You Letter sp3 - Antibiotic Education sp3 - Prescription Opioid Use sp3 - Patient Portal Instructions sp3 - Leadership Thank You Letter sp3 Prescriptions: - ondansetron 8 mg Oral Tablet,disintegrating - take 1 tablet ORAL route every 12 hours; 20 tablet; Refills: 0, Product sp3 Selection Permitted Signatures: Dispatcher [employer] EDArian Samuels RN RN ll1 Tigre Goldstein MD MD sp3 Teresita Callaway RN RN mb9 Corrections: (The following items were deleted from the chart) 10:12 08:31 Abdomen Pelvis W [id number].RAD.[id number] ordered. EDMS EDMS
--- NOTE | 2023-11-09 10:43 | ER ---
Nurse's Notes [facility] Name: Maine Bains Age: 38 yrs Sex: Female : 1985 Arrival Date: 11/09/2023 Time: 08:17 Bed 15 Private MD: Diagnosis: Abdominal pain, vomiting Presentation: 11/08 08:21 Chief complaint: Patient states: Abdominal pain N/V/D with bloody diarrhea started last ll1 night. Recent increase in dose of weight loss medication on Sunday. Coronavirus screen: Client denies travel out of the [place] in the last 14 days. At this time, the client does not indicate any symptoms associated with coronavirus-19. Ebola Screen: Patient denies travel to an Ebola-affected area in the 21 days before illness onset. Initial Sepsis Screen: Does the patient meet any 2 criteria? No. Patient's initial sepsis screen is negative. Does the patient have a suspected source of infection? No. Patient's initial sepsis screen is negative. Risk Assessment: Do you want to hurt yourself or someone else? Patient reports no desire to harm self or others. Onset of symptoms was November 08, 2023. 08:21 Method Of Arrival: EMS: [facility] ll1 08:21 Acuity: DEANNE 3 ll1 STONE GLUER: 08:26 LMP N/A - Depo-provera, Not ll1 Historical: - Allergies: 08:24 No Known Allergies; ll1 - PMHx: 08:24 Anxiety; Asthma; depressive disorder; ll1 - PSHx: 08:24 section; ll1 - Immunization history:: Adult Immunizations up to date. - Infectious Disease History:: Denies. - Social history:: Smoking status: Patient denies any tobacco usage or history of. Screenin:25 [facility] ED Fall Risk Assessment (Adult) History of falling in the last 3 months, ll1 including since admission No falls in past 3 months (0 pts) Confusion or Disorientation No (0 pts) Intoxicated or Sedated No (0 pts) Impaired Gait Yes (1 pt) Mobility Assist Device Used Yes (1 pt) Altered Elimination Yes (1 pt) Score/Fall Risk Level 3 or more points = High Risk Maintained a safe environment, Hourly rounding (assess needs \T\ fall precautionary measures) done. Abuse screen: Denies threats or abuse. Nutritional screening: No deficits noted. Tuberculosis screening: No symptoms or risk factors identified. Assessment: 08:24 General: Appears distressed, uncomfortable, ill, Behavior is cooperative, appropriate ll1 for age, restless. Pain: Complains of pain in abdomen Pain currently is 10 out of 10 on a pain scale. Quality of pain is described as aching, crampy. Neuro: Reports weakness. GI: Reports lower abdominal pain, upper abdominal pain, diarrhea, rectal bleeding, nausea, vomiting. 08:30 Reassessment: Dr. Goldstein at . ll1 08:45 Reassessment: On knees in restroom, felt like she was going to pass out and lowered ll1 herself on her knees while holding railing. Helped into room. Tolerated well. 08:59 Reassessment: No changes from previously documented assessment. Patient and/or family ll1 updated on plan of care and expected duration. Pain level reassessed. Patient is alert, oriented x 3, equal unlabored respirations, skin warm/dry/pink. 10:00 Reassessment: Patient and/or family updated on plan of care and expected duration. Pain mb9 level reassessed. Patient is alert, oriented x 3, equal unlabored respirations, skin warm/dry/pink. Patient states symptoms have not improved. 10:47 Reassessment: discharge pending completion of IV fluids. mb9 Vital Signs: 08:21 BP 137 / 92; Pulse 67; Resp 17; Temp 98; Pulse Ox 99% ; Weight 91.17 kg; Height 5 ft. 7 ll1 in. ; Pain 10/10; 10:33 BP 122 / 95; Pulse 70; Resp 18; Pulse Ox 100% on R/A; mb9 08:21 Body Mass Index 31.48 (91.17 kg, 170.18 cm) ll1 08:21 Pain Scale: Adult ll1 ED Course: 08:18 Patient arrived in ED. eb 08:23 Triage completed. ll1 08:24 Arm band placed on Patient placed in an exam room, on a stretcher. ll1 08:24 Maintain EMS IV. Dressing intact. Good blood return noted. Site clean \T\ dry. Gauge \T\ ll 1 site: 20 G L AC. 08:26 Patient has correct armband on for positive identification. Call light in reach. Side ll1 rails up X 1. Provided Education on: ER procedures and process. Client placed on continuous cardiac and pulse oximetry monitoring. NIBP monitoring applied. 08:27 Tigre Goldstein MD is Attending Physician. sp3 08:29 Arian Lee, RN is Primary Nurse. ll1 08:40 Radiology exam delayed due to test not completed at this time. ls3 08:59 Initial lab(s) drawn, by me, sent to lab. ll1 09:53 Inserted saline lock: 22 gauge in right antecubital area, using aseptic technique. ap3 Blood collected. 09:58 No provider procedures requiring assistance completed. mb9 10:12 Abdomen In Process Unspecified. EDMS 11:09 IV discontinued, intact, bleeding controlled, No redness/swelling at site. Pressure mb9 dressing applied. Administered Medications: 08:32 Drug: NS 0.9% IV 1000 ml IV at 1 bolus Per protocol; 1000 mL bolus Route: IV; Rate: 1 ll1 bolus; Site: left antecubital; 08:49 Drug: Famotidine IVP 20 mg IVP once; dilute with 10 mL 0.9% NaCl; give over 2 minutes ll1 Route: IVP; Site: left antecubital; 10:51 Follow up: Response: No adverse reaction mb9 08:49 Drug: Ondansetron IVP 4 mg IVP once; over 2 minutes Route: IVP; Site: left antecubital; ll1 10:51 Follow up: Response: No adverse reaction mb9 08:49 Drug: morphine IVP or IV 4 mg IVP once over 4 mins Route: IVP; Infused Over: 4 mins; ll1 Site: left antecubital; 10:51 Follow up: Response: No adverse reaction mb9 10:51 Drug: Ondansetron IVP 4 mg IVP once; over 2 minutes Route: IVP; Site: left antecubital; mb9 Medication: 09:09 VIS not applicable for this client. ll1 Outcome: 10:41 Discharge ordered by . sp3 11:09 Discharged to home ambulatory, mb9 11:09 Condition: stable 11:09 Discharge instructions given to patient, Instructed on discharge instructions, follow up and referral plans. Demonstrated understanding of instructions, follow-up care, medications, Prescriptions given X 1, 11:09 Patient left the ED. mb9 Signatures: Dispatcher [employer] Hilaria Andersen RN RN ap3 Katerine Maier Lynzie ls3 Arian Lee RN RN ll1 Tigre Goldstein MD MD sp3 Cesia, Teresita Song RN RN mb9
[2023-11-09 10:54] LABS: Specific Gravity 1.028 (1.005-1.030); Sqamous Epithelial <5 /HPF (None Seen); Urine Bacteria None Seen /HPF (<20); Urine Bilirubin NEGATIVE (Negative); Urine Blood Negative (Negative); Urine Clarity Extremely Turbid (Clear); Urine Color Yellow (Yellow); Urine Culture Reflex Order NOT NEEDED; Urine Glucose NEGATIVE (Negative); Urine Ketones 1+ (Negative); Urine Microscopic Reflex YN ORDER UMIC; Urine Mucus Slight /HPF (None Seen); Urine Nitrite NEGATIVE (Negative); Urine Protein TRACE (Negative); Urine RBC <5 /HPF (None Seen); Urine Urobilinogen Normal (Normal); Urine WBC <5 /HPF (<5); Urine pH 7.5 (5.0-7.0)
[2023-11-09 12:15] VITALS: BP 122/95; TEMP 98; O2SAT 100
== END 2023-11-09 11:09 | disposition home or self-care (01) ==
LOC: ER 08:17
DX: R10.30 Lower abdominal pain, unspecified (principal); R11.10 Vomiting, unspecified
CPT/HCPCS: 36415; 74176; 80053; 81001; 83690; 84703; 85025; 96374; 96375; 99284; J2405